=== PATIENT | male | born 1955 | race Caucasian/White ===

== ENCOUNTER → 2017-07-06 | Outpatient (CLI) | payer OTHER | END | disposition home or self-care (01) | LOC: LABWHC1 09:06 | PROVIDERS: ATTEND Internal Medicine Endocrinology, Diabetes & Metabolism | DX: E11.65 Type 2 diabetes mellitus with hyperglycemia (principal) | CPT/HCPCS: 36415; 82947; 84681 ==

== ENCOUNTER → 2017-07-21 | Outpatient (CLI) | payer OTHER ==
[2017-07-21 08:21] LABS: Blood Urea Nitrogen 24 mg/dL (9-20)
--- NOTE | 2017-07-21 09:40 | CT ---
EXAMINATION TYPE: CT chest w con DATE OF EXAM: 07/21/2017 COMPARISON: NONE HISTORY: Pneumonia, multiple lung nodules CT DLP: 1278.0 mGycm. Automated Exposure Control for Dose Reduction was Utilized. TECHNIQUE: CT scan of the thorax is performed following with IV Contrast, patient injected with 100 mL of Isovue 300. FINDINGS: LUNGS: Again there is a left anterior chest wall defect with herniation of the left upper lobe, simil ar to the prior. There is near complete resolution of the previously seen multifocal reticular opacit y within the left upper lobe. A trace left pleural effusion, anterior pleural thickening along the le ft upper lobe on series 3 image 22 measuring 2.1 cm, and prominent subpleural fat are now seen. There is significant improvement of the previously noted left pleural effusion and scattered atelectasis. There remains a focal opacity that is wedge-shaped with air bronchograms in the lingula. This demonst rates enhancement greater than the paraspinal musculature and is therefore favored to represent atele ctasis. Multiple well-corticated healed left-sided rib fractures are noted at ribs 2, 3, 4 and 5 on t he left. No focal consolidation is seen within the right lung, however there are scattered sub-4 mm pulmonary nodules marked on the examination most prominent within the right middle lobe on series 4 image 34 an d images 23 and 24. These are similar to the prior. MEDIASTINUM: There are no greater than 1 cm hilar or mediastinal lymph nodes. No pericardial effusi on is seen. Heart is upper limits of normal in size. OTHER: On series 3 image 61 there is a 1.7 cm low-density hepatic lesion measuring attenuation of flu id favored to represent a hepatic cyst. Mild multilevel degenerative changes of the thoracic spine ar e noted. IMPRESSION: 1. Near complete resolution the previously seen multifocal left-sided opacities and left pleural effu nesha. The pleural effusion is now trace and there is residual wedge-shaped lingular atelectasis withi n the left lung. Left chest wall defect and left upper lobe pulmonary herniation is unchanged. 2. Multiple sub-4 mm pulmonary nodules within the right lung are unchanged and follow-up CT is recomm ended in 12 months to ensure stability.
== END | disposition home or self-care (01) ==
LOC: RADCTMAIN 07:47
PROVIDERS: ATTEND Internal Medicine
DX: J98.11 Atelectasis (principal); J98.4 Other disorders of lung; R91.8 Other nonspecific abnormal finding of lung field
CPT/HCPCS: 82565; 84520; 71260; 36415; Q9967

== ENCOUNTER → 2018-09-30 | Outpatient (CLI) | payer OTHER ==
[2018-09-30 13:47] LABS: African American GFR (CKD) >90 (>60 ml/min/1.73 sqM); Blood Urea Nitrogen 26 mg/dL (9-20)
--- NOTE | 2018-09-30 16:33 | CT ---
EXAMINATION TYPE: CT angio chest DATE OF EXAM: 09/30/2018 COMPARISON: 07/21/2017 HISTORY: 63-year-old male Thoracic aneurysm TECHNIQUE: Contiguous axial scanning of the chest performed with IV Contrast, patient injected with 1 00 mL of Isovue 370. Coronal/sagittal MIP reconstructions performed. 3-D reconstructions generated on a dedicated independent workstation. CT DLP: 1068.3 mGycm Automated exposure control for dose reduction was used. FINDINGS: Heart normal size without pericardial effusion. Scattered mild coronary vessel calcifications are pre sent. Aortic root measures borderline ectatic at 3.5 cm, unchanged. Ascending aorta ectatic and 3.8 cm, unchanged. Conventional arch vessel branching anatomy. Descending thoracic aorta normal caliber. Mildly enlarged caliber to the main right and the pulmonary arteries measuring up to 3.0 cm suggestin g underlying pulmonary arterial hypertension. No thoracic lymphadenopathy. Redemonstrated multiple healed segmental left-sided rib fracture deformities. There is a posttraumatic lung herniation anteriorly at the second intercostal space with herniated sorin ng measuring 12.4 x 5.7 cm versus 12.4 x 4.5 cm, previously. Underlying pleural-parenchymal scarring. Subpleural opacity in the inferior lingula has decreased in the interval. Residual opacity here susp ected to represent rounded atelectasis. Additional chronic subpleural thickening posterior left base. Stable 5 mm and smaller scattered pulmonary nodules. Mild centrilobular emphysema. Larger 9 mm medial right apical pulmonary nodule is also stable. Visualized upper abdomen shows stable mild thickening of the left adrenal gland. Bones: Again, multiple segmental healed left-sided rib fracture deformities. Moderate endplate spondy losis throughout. IMPRESSION: 1. ECTATIC ASCENDING AORTA (ROOT 3.5 CM AND ASCENDING 3.8 CM). 2. COPD WITH MILD EMPHYSEMA AND PULMONARY ARTERIAL HYPERTENSION. 3. MULTIPLE HEALED SEGMENTAL LEFT-SIDED RIB FRACTURE DEFORMITIES WITH UNDERLYING PLEURAL PARENCHYMAL SCARRING AND LEFT BASILAR ROUNDED ATELECTASIS. 4. THERE IS ALSO REDEMONSTRATED POSTTRAUMATIC LUNG HERNIATION EXTENDING ANTERIORLY IN THE SECOND INTE RCOSTAL SPACE. THE LUNG HERNIATION IS MINIMALLY LARGER AT 12.4 X 5.7 CM (VERSUS 12.4 X 4.5 CM, PREVIO USLY). CONSIDER THORACIC SURGERY REFERRAL TO ASSESS FOR ANY POTENTIAL FURTHER MANAGEMENT. 5. NUMEROUS 9 MM SMALLER PULMONARY NODULES ARE UNCHANGED FOR OVER A YEAR SUGGESTING A BENIGN ETIOLOGY .
== END | disposition home or self-care (01) ==
LOC: RADCTMAIN 13:16
PROVIDERS: ATTEND Internal Medicine Interventional Cardiology
DX: I77.810 Thoracic aortic ectasia (principal); J43.9 Emphysema, unspecified; I27.21 Secondary pulmonary arterial hypertension; J98.4 Other disorders of lung; J98.11 Atelectasis
CPT/HCPCS: 82565; 84520; 71275; 36415; Q9967

== ENCOUNTER → 2020-01-11 | Day surgery (SDC) | payer MEDICARE ==
[2020-01-10 10:42] VITALS: BMI 39.9
[~2020-01-11] MED LIST: LACTATED RINGERS 1,000 ML IV SCH; LIDOCAINE 1% (10MG/ML) FOR IV START INTRADERMA PRN; PROPOFOL 10 MG/ML 20 ML VIAL IV ONE
--- NOTE | 2020-01-11 06:24 | P.GSHP ---
History of Present Illness H&P Date: 01/11/20 CHIEF COMPLAINT: Colon screen HISTORY OF PRESENT ILLNESS: The patient is a 64-year-old male who presents for colon screen. Lower endoscopy was offered for further evaluation and management. PAST MEDICAL HISTORY: Please see list. PAST SURGICAL HISTORY: Please see list. MEDICATIONS: Please see list. ALLERGIES: Please see list. SOCIAL HISTORY: No illicit drug use FAMILY HISTORY: No reports of Crohn disease or ulcerative colitis. REVIEW OF ORGAN SYSTEMS: CONSTITUTIONAL: No reports of fevers or chills. PHYSICAL EXAM: VITAL SIGNS: Stable GENERAL: Well-developed pleasant in no acute distress. HEENT: No scleral icterus. Extraocular movements grossly intact. Moist buccal mucosa. NECK: Supple without lymphadenopathy. CHEST: Unlabored respirations. Equal bilateral excursions. CARDIOVASCULAR: Regular rate and rhythm. Distal 2+ pulses. ABDOMEN: Soft, nontender, nondistended. MUSCULOSKELETAL: No clubbing, cyanosis, or edema. ASSESSMENT: 1. Colon screen. PLAN: 1. 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 History of Any Multi-Drug Resistant Organisms: None Reported Past Surgical History: Appendectomy, Hernia Repair Additional Past Surgical History / Comment(s): COLONOSCOPY Past Anesthesia/Blood Transfusion Reactions: No Reported Reaction Smoking Status: Current every day smoker - Past Family History Sister(s) Family Medical History: Cancer Medications and Allergies Home Medications Medication Instructions Recorded Confirmed Type Aspirin [Adult Low Dose Aspirin EC] 81 mg PO DAILY 03/07/17 01/10/20 History Pioglitazone HCl 30 mg PO DAILY 03/07/17 01/10/20 History atenoloL [Tenormin] 25 mg PO DAILY 03/07/17 01/10/20 History gemfibroziL [Lopid] 600 mg PO BID 03/07/17 01/10/20 History metFORMIN HCL 1,000 mg PO BID 03/07/17 01/10/20 History Acetaminophen Tab [Tylenol] 650 mg PO Q6HR PRN tab 03/11/17 01/10/20 Rx Cholecalciferol [Vitamin D3 (25 1,000 unit PO DAILY 01/10/20 01/10/20 History Mcg = 1000 Iu)] Empagliflozin [Jardiance] 25 mg PO DAILY 01/10/20 01/10/20 History Ferrous Sulfate [Feosol] 325 mg PO DAILY 01/10/20 01/10/20 History Glimepiride [Amaryl] 4 mg PO DAILY 01/10/20 01/10/20 History Ipratropium-Albuterol Nebulize 3 ml INHALATION RT-QID PRN 01/10/20 01/10/20 History [Duoneb 0.5 mg-3 mg/3 ml Soln] Lisinopril [Prinivil] 10 mg PO DAILY 01/10/20 01/10/20 History Psyllium Husk 100% [Metamucil 6 gm PO DAILY PRN 01/10/20 01/10/20 History Packet] Tiotropium 18 Mcg/Puff [Spiriva] 1 puff INHALATION DAILY PRN 01/10/20 01/10/20 History Allergies Allergy/AdvReac Type Severity Reaction Status Date / Time No Known Allergies Allergy Verified 01/10/20 09:59
[2020-01-11 08:30] VITALS: RESP 16; TEMP 97.5
[2020-01-11 08:32] LABS: Glucose,Whole Blood 147 mg/dL (75-99)
--- NOTE | 2020-01-11 09:28 | P.PCN ---
Date of Procedure: 01/11/20 Description of Procedure: PREOPERATIVE DIAGNOSIS: Personal history of colon polyps POSTOPERATIVE DIAGNOSIS: Personal history of colon polyps Sigmoid colon polyps Internal hemorrhoids, grade 3 External hemorrhoids, grade 4 OPERATION: Colonoscopy to the ileocecal valve and appendiceal orifice, cecum Colonoscopy with cold forceps biopsies SURGEON: Rani Vazquez MD. ANESTHESIA: MAC. INDICATIONS: The patient is an 64-year-old male who presents personal history of colon polyps. Last colonoscopy 5 within years. Benefits and risks were described and informed consent was obtained. DESCRIPTION OF PROCEDURE: The patient had undergone Gatorade, MiraLAX, Dulcolax prep. He had been brought into the operating room and laid in the left lateral decubitus position. After adequate intravenous sedation, the rectum was examined with 2% lidocaine jelly. The prostate fossa was unremarkable. External hemorrhoids were encountered. The rectal tone was within normal limits. No lesions were palpated in the rectal vault. An Olympus colonoscope was advanced until the cecum, ileocecal valve and appendiceal orifice were clearly viewed. The prep was fair. No sigmoid diverticulosis was encountered. Multiple colonic polyps were found and snare polypectomy. No evidence of focal colitis was found. Retroflexion of the scope demonstrated grade 3 internal hemorrhoids without active bleeding or inflammation. The colon was desufflated. The patient had tolerated the procedure well. Withdrawal time was over 6 minutes. FINDINGS: Aronchick preparation quality scale 2 (1-5) Internal hemorrhoids, grade 3 External hemorrhoids, grade 4. No arteriovenous malformations. No sigmoid diverticulosis Removal of 2 polyps: - Cold forceps biopsy at 20 cm from the anal verge x 2, 3 to 4 mm polyps No focal colitis. RECOMMENDATIONS: Repeat colonoscopy 3 years, 2022 Plan - Discharge Summary Discharge Rx Participant: No New Discharge Prescriptions: Continue metFORMIN HCL 1,000 mg PO BID Pioglitazone HCl 30 mg PO DAILY gemfibroziL [Lopid] 600 mg PO BID atenoloL [Tenormin] 25 mg PO DAILY Aspirin [Adult Low Dose Aspirin EC] 81 mg PO DAILY Acetaminophen Tab [Tylenol] 650 mg PO Q6HR PRN tab PRN Reason: Mild Pain Or Fever > 100.5 Psyllium Husk 100% [Metamucil Packet] 6 gm PO DAILY PRN PRN Reason: CONSTIPATION Ipratropium-Albuterol Nebulize [Duoneb 0.5 mg-3 mg/3 ml Soln] 3 ml INHALATION RT-QID PRN PRN Reason: Shortness Of Breath Or Wheezing Ferrous Sulfate [Iron (65 MG Elemental)] 325 mg PO DAILY Cholecalciferol [Vitamin D3 (25 Mcg = 1000 Iu)] 1,000 unit PO DAILY Lisinopril [Prinivil] 10 mg PO DAILY Tiotropium 18 Mcg/Puff [Spiriva] 1 puff INHALATION DAILY PRN PRN Reason: Shortness Of Breath Empagliflozin [Jardiance] 25 mg PO DAILY Glimepiride [Amaryl] 4 mg PO DAILY Discharge Medication List Aspirin [Adult Low Dose Aspirin EC] 81 mg PO DAILY 03/07/17 [History] Pioglitazone HCl 30 mg PO DAILY 03/07/17 [History] atenoloL [Tenormin] 25 mg PO DAILY 03/07/17 [History] gemfibroziL [Lopid] 600 mg PO BID 03/07/17 [History] metFORMIN HCL 1,000 mg PO BID 03/07/17 [History] Acetaminophen Tab [Tylenol] 650 mg PO Q6HR PRN tab 03/11/17 [Rx] Cholecalciferol [Vitamin D3 (25 Mcg = 1000 Iu)] 1,000 unit PO DAILY 01/10/20 [History] Empagliflozin [Jardiance] 25 mg PO DAILY 01/10/20 [History] Ferrous Sulfate [Iron (65 MG Elemental)] 325 mg PO DAILY 01/10/20 [History] Glimepiride [Amaryl] 4 mg PO DAILY 01/10/20 [History] Ipratropium-Albuterol Nebulize [Duoneb 0.5 mg-3 mg/3 ml Soln] 3 ml INHALATION RT-QID PRN 01/10/20 [History] Lisinopril [Prinivil] 10 mg PO DAILY 01/10/20 [History] Psyllium Husk 100% [Metamucil Packet] 6 gm PO DAILY PRN 01/10/20 [History] Tiotropium 18 Mcg/Puff [Spiriva] 1 puff INHALATION DAILY PRN 01/10/20 [History] Follow up Appointment(s)/Referral(s): Rani Vazquez MD [STAFF PHYSICIAN] - As Needed Patient Instructions/Handouts: Colorectal Polyps (IP) Activity/Diet/Wound Care/Special Instructions: Repeat colonoscopy 3 years, 2022 Discharge Disposition: HOME SELF-CARE
[2020-01-11 10:05] VITALS: BP 106/47; PULSE 67
== END | disposition home or self-care (01) ==
LOC: ORWHC2ENDO 08:08
PROVIDERS: ATTEND Surgery Plastic and Reconstructive Surgery
DX: Z12.11 Encounter for screening for malignant neoplasm of colon (principal); D12.6 Benign neoplasm of colon, unspecified; K64.2 Third degree hemorrhoids; K64.4 Residual hemorrhoidal skin tags; I10 Essential (primary) hypertension; E78.5 Hyperlipidemia, unspecified; G47.33 Obstructive sleep apnea (adult) (pediatric); J44.9 Chronic obstructive pulmonary disease, unspecified; F17.200 Nicotine dependence, unspecified, uncomplicated; E11.9 Type 2 diabetes mellitus without complications; Z86.010 Personal history of colon polyps; Z79.84 Long term (current) use of oral hypoglycemic drugs; Z79.82 Long term (current) use of aspirin; Z79.899 Other long term (current) drug therapy; Z99.89 Dependence on other enabling machines and devices; Z98.890 Other specified postprocedural states; Z87.01 Personal history of pneumonia (recurrent)
CPT/HCPCS: 88305; 45380; J2704

== ENCOUNTER → 2020-04-26 | Outpatient (CLI) | payer MEDICARE ==
--- NOTE | 2020-04-26 11:58 | CT ---
EXAMINATION TYPE: CT angio chest DATE OF EXAM: 04/26/2020 COMPARISON: 09/30/2018 HISTORY: 65-year-old male I71.2, Thoracic aortic aneurysm w/o rupture TECHNIQUE: Contiguous axial scanning of the chest performed with IV Contrast, patient injected with 1 00 mL of Isovue 370. Coronal and sagittal MIP reconstructions performed. 3-D images generated on a de dicated independent workstation. CT DLP: 1122.9 mGycm Automated exposure control for dose reduction was used. FINDINGS: Heart size without pericardial effusion. Mild coronary calcifications are present. Aortic root currently measured at 4.0 cm versus 3.8 cm, previously. There is motion at this level niteo iting accurate assessment. Ascending aorta is ectatic at 3.8 cm, unchanged. Minimal atherosclerotic arch calcifications with conventional arch vessel branching anatomy. Large caliber to the main right and left pulmonary arteries measuring up to 3.2 cm suggesting underly ing pulmonary arterial hypertension. Bilateral hilar lymph nodes appear slightly larger now measuring up to 2.2 x 1.3 cm on the left and 2 .8 x 1.3 cm on the right. No mediastinal or axillary lymphadenopathy. Diffuse increased interstitial density is largely unchanged. Patchy interstitial opacity has increase d in the bilateral lower lobes with possible developing consolidation lateral right lower lobe, axial image 74. Scattered pulmonary nodules measuring up to 7 mm appear largely unchanged. Redemonstrated are multiple healed segmental fracture deformities of the left-sided ribs with some se condary thoracic deformity and extensive pleural-parenchymal scarring as well as an area of chronic c onsolidation in the inferior lingula, probable scarring. This area shows increasing fullness as eugenia red to prior exam measuring 7.3 cm AP versus 5.8 cm, previously. Anterior lung herniation across the left second intercostal space is redemonstrated measuring approxi mately 10 cm wide and 4.3 cm AP, not significantly changed. Nodular thickening left adrenal gland measures 1.8 cm, not significantly changed. Bones: Multiple left-sided segmental rib fracture deformities as mentioned above. Moderate endplate s pondylosis lower thoracic spine. IMPRESSION: 1. SOME OF THE UNDERLYING INTERSTITIAL CHANGES APPEAR CHRONIC. HOWEVER, THERE ARE WORSENING INTERSTIT IAL INFILTRATES AND AREAS OF PATCHY [place]OUNDGLASS AND EARLY CONSOLIDATION ESPECIALLY IN THE PERIPHERY O F THE MID AND LOWER LUNGS. CORRELATE FOR ANY RESPIRATORY SIGNS/SYMPTOMS. ATYPICAL PNEUMONIA INCLUDING COVID PNEUMONIA AND INTERSTITIAL PNEUMONITIS ARE SOME DIFFERENTIAL CONSIDERATIONS. CONSIDER REFERRAL TO PULMONARY MEDICINE FOR FURTHER EVALUATION. 2. AORTIC ROOT MILDLY ANEURYSMAL, MEASURED AT 4.0 CM VERSUS 3.8 CM, PREVIOUSLY. STABLE ECTASIA OF THE ASCENDING AORTA AT 3.8 CM. PULMONARY ARTERIAL HYPERTENSION. 3. SCATTERED PULMONARY NODULES ARE STABLE. HOWEVER, FOCAL INFERIOR LINGULAR CONSOLIDATION IS INCREASI NG NOW MEASURING 7.3 CM AP VERSUS 5.7 CM, PREVIOUSLY. THREE-MONTH FOLLOW-UP IS RECOMMENDED TO REASSES S. IF PROGRESSIVE INCREASE IN SIZE, CONSIDER PET CT OR BIOPSY. 4. INCREASING BILATERAL HILAR LYMPHADENOPATHY. CORRELATE FOR ANY KNOWN UNDERLYING DIAGNOSIS SUCH S ARCOIDOSIS. CORRELATE TO EXCLUDE ATYPICAL FUNGAL OR MYCOBACTERIAL INFECTIONS. THE POSSIBILITY OF META STATIC DISEASE IS DIFFICULT TO EXCLUDE AT THIS TIME BUT CONSIDERED LESS LIKELY. THIS CAN ALSO BE FOLL OWED BY PULMONARY MEDICINE. 5. MULTIPLE SEGMENTAL HEALED LEFT RIB FRACTURE DEFORMITIES WITH REDEMONSTRATED ANTERIOR LUNG HERNIATI ON ACROSS THE SECOND INTERCOSTAL SPACE. .
== END | disposition home or self-care (01) ==
LOC: RADCTMAIN 10:05
PROVIDERS: ATTEND Internal Medicine Interventional Cardiology
DX: R91.8 Other nonspecific abnormal finding of lung field (principal); J84.9 Interstitial pulmonary disease, unspecified; J12.89 Other viral pneumonia; U07.1 COVID-19; J84.89 Other specified interstitial pulmonary diseases; I77.810 Thoracic aortic ectasia; I27.21 Secondary pulmonary arterial hypertension; R59.1 Generalized enlarged lymph nodes
CPT/HCPCS: 82565; 84520; 71275; 36415; Q9967

== ENCOUNTER → 2021-10-11 | Outpatient (CLI) | payer MEDICARE ==
--- NOTE | 2021-10-11 16:11 | CT ---
EXAMINATION TYPE: CT angio chest DATE OF EXAM: 10/11/2021 COMPARISON: 04/26/2020 HISTORY: 66-year-old male I71.2, thoracic aortic aneurysm TECHNIQUE: Contiguous axial scanning of the chest performed without and with IV Contrast, patient inj ected with 70 mL of Isovue 370. Coronal/sagittal MIP reconstructions performed. 3-D reconstructions g enerated on a dedicated independent workstation. CT DLP: 1804.5 mGycm Automated exposure control for dose reduction was used. FINDINGS: The heart is upper limits of normal in size without pericardial effusion. Scattered three-vessel anna nary artery calcifications are present. Aortic root borderline ectatic at 3.5 cm. Previously measured at 4.0 cm. Likely overestimated due to the degree of cardiac motion. Ascending aorta ectatic and 3.7 cm previously measured at 3.8 cm, not significantly changed. Mild atherosclerotic arch calcifications with conventional branching anatomy. Descending thoracic aor ta normal caliber. Mildly enlarged caliber to the main right and left pulmonary arteries measuring up to 3.3 cm suggesti ng underlying pulmonary hypertension. Redemonstrated bilateral hilar lymph nodes measuring up to 2.0 cm on the right and 1.7 cm on the left . These are similar to slightly smaller compared to prior exam suggesting a reactive, postinflammator y etiology. No progressively enlarging lymph nodes are seen. There is a focal anterior lung herniation from the upper left hemithorax involving the second interco stal space. Lung projects approximately 4.6 cm anterior to the expected thoracic margin versus 3.8 cm , previously. Asymmetrically lifts up onto the left pectoralis major. Multiple old healed left-sided rib fracture deformities. Focal subpleural opacification anterior left midlung and inferior lingula appears similar. Additional scattered areas of scarring are also redemo nstrated. A few scattered 5 mm and smaller pulmonary nodules appear unchanged. Largest measuring 1.1 cm medial right apex also unchanged. The previous patchy opacity posterolateral right mid lung has resolved. No pleural effusion. Visualized upper abdomen shows partially visualized cyst measuring at least 6.0 cm lateral right kidn ey and a left adrenal nodule measuring 1.9 cm, unchanged. Bones: Mild multilevel degenerative disc disease. Accentuated kyphosis at the thoracolumbar junction. IMPRESSION: 1. AORTIC ROOT IS BORDERLINE ECTATIC AT 3.5 CM. IT MAY HAVE BEEN OVERESTIMATED ON THE PRIOR EXAM DUE TO PROMINENT CARDIAC MOTION. ASCENDING AORTA SIMILARLY ECTATIC AT 3.7 CM. 2. CORRELATE FOR UNDERLYING PULMONARY ARTERIAL HYPERTENSION. 3. BILATERAL HILAR LYMPHADENOPATHY SIMILAR TO SLIGHTLY IMPROVED, MEASURING UP TO 2.0 CM, LIKELY REACT KINZA/POST INFLAMMATORY. 4. OLD TRAUMA TO THE LEFT HEMITHORAX WITH FOCAL ANTERIOR LUNG HERNIATION ACROSS THE SECOND INTERCOSTA L SPACE. HERNIATION IS SLIGHTLY LARGER MEASURING 4.6 CM AP VERSUS 3.8 CM, PREVIOUSLY, AND ASYMMETRICA LLY LIFTS UP ON THE LEFT PECTORALIS MAJOR. 5. CHRONIC AREAS OF CONSOLIDATION ON THE LEFT ARE UNCHANGED. ADDITIONALLY, A NUMBER OF PULMONARY NODU LES MEASURING UP TO 1.1 CM ARE ALSO UNCHANGED. RECOMMEND ONGOING ANNUAL SURVEILLANCE.
== END | disposition home or self-care (01) ==
LOC: RADCTMAIN 13:57
PROVIDERS: ATTEND Internal Medicine Interventional Cardiology
DX: I71.2 Thoracic aortic aneurysm, without rupture (principal); R91.8 Other nonspecific abnormal finding of lung field
CPT/HCPCS: 82565; 84520; 71275; 36415; Q9967

== ENCOUNTER → 2022-07-28 | Outpatient (CLI) | payer MEDICARE ==
[2022-07-28 15:26] LABS: ALT 19 U/L (10-49); AST 15 U/L (14-35); Chol/HDL Ratio 3.74 Ratio; LDL Cholesterol,Calculated 63.6 mg/dL (0.0-131.0)
== END | disposition home or self-care (01) ==
LOC: LABWHC1 07:53
PROVIDERS: ATTEND Internal Medicine Interventional Cardiology
DX: E78.2 Mixed hyperlipidemia (principal)
CPT/HCPCS: 36415; 80061; 84450; 84460

== ENCOUNTER 2022-12-19 15:50 | Emergency (ER) | payer MEDICARE ==
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
[2022-12-19 16:01] LABS: Glucose,Whole Blood 147 mg/dL (70-110)
[2022-12-19 16:08] VITALS: BP 106/70; PULSE 72; RESP 18; TEMP 98.4
[2022-12-19 16:15] LABS: Basophils % (A) 0 %; Eosinophils # (A) 0.2 k/uL (0-0.7); Eosinophils % (A) 3 %; HCT 54.3 % (39.0-53.0); HGB 18.1 gm/dL (13.0-17.5); Lymphocytes # (A) 1.7 k/uL (1.0-4.8); Lymphocytes % (A) 28 %; MCH 30.8 pg (25.0-35.0); MCHC 33.3 g/dL (31.0-37.0); MCV 92.4 fL (80.0-100.0); Monocytes # (A) 0.5 k/uL (0-1.0); Monocytes % (A) 8 %; Neutrophils # (A) 3.4 k/uL (1.3-7.7); Neutrophils % (A) 57 %; Platelet Count 196 k/uL (150-450); RBC 5.88 m/uL (4.30-5.90); RDW 14.9 % (11.5-15.5); WBC 5.9 k/uL (3.8-10.6)
[2022-12-19 16:27] LABS: ALT 22 U/L (4-49); AST 29 U/L (17-59); African American GFR (CKD) 81 (>60 ml/min/1.73 sqM); Albumin 4.4 g/dL (3.5-5.0); Alcohol <10 mg/dL; Alkaline Phosphatase 67 U/L (38-126); Anion Gap 10 mmol/L; Blood Urea Nitrogen 35 mg/dL (9-20); Calcium 9.7 mg/dL (8.4-10.2); Carbon Dioxide 28 mmol/L (22-30); Chloride 100 mmol/L (98-107); Glucose 146 mg/dL (74-99); Non-African American GFR(CKD) 70 (>60 ml/min/1.73 sqM); Potassium 4.2 mmol/L (3.5-5.1); Sodium 138 mmol/L (137-145); Total Bilirubin 0.6 mg/dL (0.2-1.3); Total Protein 7.6 g/dL (6.3-8.2)
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
[2022-12-19 16:35] LABS: Partial Thromboplastin Time 24.8 sec (22.0-30.0); Prothrombin Time 10.5 sec (9.0-12.0)
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
== END 2022-12-19 18:20 | disposition home or self-care (01) ==
LOC: EC 15:50
DX: S16.1XXA Strain of muscle, fascia and tendon at neck level, initial encounter (principal); J44.9 Chronic obstructive pulmonary disease, unspecified; E11.9 Type 2 diabetes mellitus without complications; E78.5 Hyperlipidemia, unspecified; I10 Essential (primary) hypertension; F17.210 Nicotine dependence, cigarettes, uncomplicated; Z79.82 Long term (current) use of aspirin; Z79.01 Long term (current) use of anticoagulants; Z79.899 Other long term (current) drug therapy; Z79.84 Long term (current) use of oral hypoglycemic drugs; V49.50XA Passenger injured in collision with unspecified motor vehicles in traffic accident, initial encounter
CPT/HCPCS: 36415; 86900; 86901; 80053; 84484; 85025; 85610; 85730; 86850; 72170; 71045; 72125; 70450; 99285; G0480; 80320; 93005

== ENCOUNTER → 2023-02-03 | Outpatient (CLI) | payer MEDICARE ==
--- NOTE | 2023-02-03 12:09 | CTL ---
EXAMINATION TYPE: CT Low Dose Lung DATE OF EXAM ORDERED: 02/03/2023 HISTORY: . Lung cancer screening CT DLP: [address] CTDI: 4.3 mGy Automated exposure control for dose reduction was used. SCREENING VISIT: COMPARISON: 04/26/2020 TECHNIQUE: Low dose computed tomography scan was performed through the chest at 1 mm thick sections a nd reconstructed images in multiple planes at 1 mm and [address] DIAGNOSTIC QUALITY: Satisfactory FINDINGS: Heart size normal.. Mild coronary calcifications are present. Aortic root currently measured at 4.1 c m versus 4.0cm, previously. There is motion at this level limiting accurate assessment. Ascending aorta is ectatic at 3.8 cm, unchanged. Minimal atherosclerotic arch calcifications with con ventional arch vessel branching anatomy. Large caliber to the main right and left pulmonary arteries measuring up to 3.2 cm suggesting underlying pulmonary arterial hypertension. Bilateral hilar promine nce limited by noncontrast technique. Lymph nodes previously mentioned are stable now measuring up to 2.2 x 1.3 cm on the left and 2.8 x 1.3 cm on the right. No mediastinal or axillary lymphadenopathy. Diffuse increased interstitial density is largely unchanged. Patchy interstitial opacity has increase d in the bilateral lower lobes with stable focal consolidation left lower lobe. Additionally anterior area of nodular consolidation involving the left upper lobe is stable Scattered pulmonary nodules measuring up to 7 mm appear largely unchanged. Stable Redemonstrated are multiple healed segmental fracture deformities of the left- sided ribs with some s econdary thoracic deformity. There is extensive pleural- parenchymal scarring as well as an area of chronic consolidation in the i nferior lingula, probable scarring. This area is stable. Anterior lung herniation across the left sec ond intercostal space is redemonstrated measuring approximately 10 cm wide and 4.3 cm AP, not signifi cantly changed. Underlying emphysematous changes are noted and there is mild interlobular septal thic kening along the periphery of the lungs compatible with mild pulmonary fibrosis. Basilar areas of sub segmental consolidation compatible with atelectasis. Nodular thickening left adrenal gland measures 1.8 cm, not significantly changed. Small hiatal hernia . Bones: Multiple left-sided segmental rib fracture deformities as mentioned above. Moderate endplate s pondylosis lower thoracic spine. IMPRESSION: 1. Stable bone thoracic cage deformity on the left with lung herniation unchanged from prior exam. 2. Stable multiple bilateral pulmonary nodules the largest measuring 7 mm. 3. Stable aortic root and mild aneurysmal dilation measuring 4.1 cm. 4. Stable bilateral hilar lymphadenopathy. 5. Area of consolidation air bronchograms and lingular segment left upper lobe is similar to the prio r exam could reflect chronic underlying atelectasis. CT LUNG RAD AND CT CHEST RECOMMENDATION: Lung-Rad 3 Probably Benign: 6 month follow-up LDCT.
== END | disposition home or self-care (01) ==
LOC: RADCTMAIN 09:16
PROVIDERS: ATTEND Internal Medicine Critical Care Medicine
DX: Z12.2 Encounter for screening for malignant neoplasm of respiratory organs (principal); F17.210 Nicotine dependence, cigarettes, uncomplicated; J98.4 Other disorders of lung; R91.8 Other nonspecific abnormal finding of lung field; R59.0 Localized enlarged lymph nodes
CPT/HCPCS: 71271

== ENCOUNTER 2023-02-18 07:33 | Day surgery (SDC) | payer MEDICARE ==
[2023-02-16 10:39] VITALS: BMI 38.0
[~2023-02-18 07:33] MED LIST changes: -LIDOCAINE 1% (10MG/ML) FOR IV START INTRADERMA PRN; -PROPOFOL 10 MG/ML 20 ML VIAL IV ONE
[2023-02-18] MEDS ORDERED: LACTATED RINGERS 1,000 ML IV ONE (07:55)
[2023-02-18 08:21] LABS: Glucose,Whole Blood 131 mg/dL (70-110)
[2023-02-18] MEDS ORDERED: PROPOFOL 10 MG/ML 20 ML VIAL IV ONE (08:25)
[2023-02-18 08:27] VITALS: TEMP 98.1
--- NOTE | 2023-02-18 08:43 | P.GSHP ---
History of Present Illness H&P Date: 02/18/23 CHIEF COMPLAINT: Colon screen HISTORY OF PRESENT ILLNESS: The patient is a 67-year-old male who presents for colon screen. Lower endoscopy was offered for further evaluation and management. PAST MEDICAL HISTORY: Please see list. PAST SURGICAL HISTORY: Please see list. MEDICATIONS: Please see list. ALLERGIES: Please see list. SOCIAL HISTORY: No illicit drug use FAMILY HISTORY: No reports of Crohn disease or ulcerative colitis. REVIEW OF ORGAN SYSTEMS: CONSTITUTIONAL: No reports of fevers or chills. PHYSICAL EXAM: VITAL SIGNS: Stable GENERAL: Well-developed pleasant in no acute distress. HEENT: No scleral icterus. Extraocular movements grossly intact. Moist buccal mucosa. NECK: Supple without lymphadenopathy. CHEST: Unlabored respirations. Equal bilateral excursions. CARDIOVASCULAR: Regular rate and rhythm. Distal 2+ pulses. ABDOMEN: Soft, nontender, nondistended. MUSCULOSKELETAL: No clubbing, cyanosis, or edema. ASSESSMENT: 1. Colon screen. PLAN: 1. Recommend proceeding with a lower endoscopy Past Medical History Past Medical History: Coronary Artery Disease (CAD), COPD, Diabetes Mellitus, Hyperlipidemia, Hypertension, Pneumonia, Sleep Apnea/CPAP/BIPAP Additional Past Medical History / Comment(s): C PAP MACHINE,Covid infection Mar 2020 History of Any Multi-Drug Resistant Organisms: None Reported Past Surgical History: Appendectomy, Heart Catheterization With Stent, Hernia Repair Additional Past Surgical History / Comment(s): COLONOSCOPY,umbilical hernia Past Anesthesia/Blood Transfusion Reactions: No Reported Reaction Additional Past Anesthesia/Blood Transfusion Reaction / Comment(s): it takes awhile to wake up with anesthesia Date of Last Stent Placement:: 05-22-22 Smoking Status: Current every day smoker - Past Family History Sister(s) Family Medical History: Cancer Additional Family Medical History / Comment(s): 2 sisters-skin,breast Medications and Allergies Home Medications Medication Instructions Recorded Confirmed Type Aspirin [Adult Low Dose Aspirin EC] 81 mg PO DAILY 03/07/17 02/18/23 History Pioglitazone HCl 30 mg PO DAILY 03/07/17 02/18/23 History atenoloL [Tenormin] 25 mg PO QAM 03/07/17 02/18/23 History metFORMIN HCL [Glucophage] 1,000 mg PO BID 03/07/17 02/18/23 History Empagliflozin [Jardiance] 25 mg PO DAILY 01/10/20 02/18/23 History Glimepiride [Amaryl] 4 mg PO DAILY 01/10/20 02/18/23 History lisinopriL [Prinivil] 10 mg PO QAM 01/10/20 02/18/23 History Atorvastatin [Lipitor] 80 mg PO HS 05/19/22 02/18/23 History Fluticasone/Umeclidin/Vilanter 1 puff INHALATION HS 05/19/22 02/18/23 History [Trelegy Ellipta 200-62.5-25] Multivitamins, Thera [Multivitamin 1 tab PO DAILY 05/19/22 02/18/23 History (formulary)] Clopidogrel [Plavix] 75 mg PO DAILY #90 tablet 05/22/22 02/18/23 Rx Nitroglycerin Sl Tabs [Nitrostat] 0.4 mg SUBLINGUAL Q5M PRN #25 tab 05/22/22 02/18/23 Rx Albuterol Inhaler [Ventolin Hfa 1 - 2 puff INHALATION Q6H PRN 02/16/23 02/18/23 History Inhaler] Ezetimibe [Zetia] 10 mg PO BID 02/16/23 02/18/23 History Fluticasone Nasal Jermyn [Flonase 2 spray EA NOSTRIL DAILY PRN 02/16/23 02/18/23 History Nasal Jermyn] gemfibroziL [Lopid] 600 mg PO AC-BID 02/16/23 02/18/23 History Allergies Allergy/AdvReac Type Severity Reaction Status Date / Time No Known Allergies Allergy Verified 02/16/23 09:30 Surgical - Exam Vital Signs Temp Pulse BP Pulse Ox 98.1 F 67 117/59 93 L 02/18/23 08:05 02/18/23 08:05 02/18/23 08:05 02/18/23 08:05 Results - Labs Abnormal Lab Results - Last 24 Hours (Table) 02/18/23 Range/Units 08:14 POC Glucose (mg/dL) 131 H (70-110) mg/dL
--- NOTE | 2023-02-18 09:01 | P.PCN ---
Date of Procedure: 02/18/23 Description of Procedure: PREOPERATIVE DIAGNOSIS: Colonoscopy screening Chronic antiplatelet therapy Coronary artery disease History of colon polyp POSTOPERATIVE DIAGNOSIS: Tubular adenoma ascending colon Tubular adenoma transverse colon Internal hemorrhoids, grade 3 OPERATION: Colonoscopy to the ileocecal valve and appendiceal orifice, cecum Colonoscopy with hot snare polypectomy SURGEON: Rani Vazquez MD. ANESTHESIA: MAC. INDICATIONS: The patient is an 67-year-old male who presents for colonoscopy screening with polyps. Last colonoscopy 5 years. Benefits and risks were described and informed consent was obtained. DESCRIPTION OF PROCEDURE: The patient had undergone Golytely prep. The patient had been brought into the operating room and laid in the left lateral decubitus position. After adequate intravenous sedation, the rectum was examined with 2% lidocaine jelly. The pros gutierrez was unremarkable. External hemorrhoids were encountered. The rectal tone was within normal limits. No lesions were palpated in the rectal vault. An Olympus colonoscope was advanced until the cecum, ileocecal valve and appendiceal orifice were clearly viewed. The prep was poor to fair. No sigmoid diverticulosis was encountered. Colonic polyps were found and removed. No evidence of focal colitis was found. Retroflexion of the scope demonstrated grade 4 internal hemorrhoids without active bleeding or inflammation. The colon was desufflated. The patient had tolerated the procedure well. Withdrawal time was over 6 minutes. FINDINGS: Aronchick preparation quality scale 3+ (1-5) Internal hemorrhoids, grade 4 External hemorrhoids, grade 4. No arteriovenous malformations. No sigmoid diverticulosis Removal of 2 polyps: - Snare polypectomy ascending colon, 5 mm tubulovillous adenoma - Snare polypectomy transverse colon, 6 mm flat villous adenoma No focal colitis. RECOMMENDATIONS: Recommend three-day prep Repeat colonoscopy in 3 years, 2025 Plan - Discharge Summary Discharge Rx Participant: No New Discharge Prescriptions: Continue metFORMIN HCL [Glucophage] 1,000 mg PO BID Pioglitazone HCl 30 mg PO DAILY atenoloL [Tenormin] 25 mg PO QAM Aspirin [Adult Low Dose Aspirin EC] 81 mg PO DAILY lisinopriL [Prinivil] 10 mg PO QAM Empagliflozin [Jardiance] 25 mg PO DAILY Glimepiride [Amaryl] 4 mg PO DAILY Fluticasone/Umeclidin/Vilanter [Trelegy Ellipta 200-62.5-25] 1 puff INHALATION HS Nitroglycerin Sl Tabs [Nitrostat] 0.4 mg SUBLINGUAL Q5M PRN #25 tab PRN Reason: Chest Pain Albuterol Inhaler [Ventolin Hfa Inhaler] 1 - 2 puff INHALATION Q6H PRN PRN Reason: sob Ezetimibe [Zetia] 10 mg PO BID gemfibroziL [Lopid] 600 mg PO AC-BID Multivitamins, Thera [Multivitamin (formulary)] 1 tab PO DAILY Atorvastatin [Lipitor] 80 mg PO HS Clopidogrel [Plavix] 75 mg PO DAILY #90 tablet Fluticasone Nasal Oketo [Flonase Nasal Oketo] 2 spray EA NOSTRIL DAILY PRN PRN Reason: Congestion Discharge Medication List Aspirin [Adult Low Dose Aspirin EC] 81 mg PO DAILY 03/07/17 [History] Pioglitazone HCl 30 mg PO DAILY 03/07/17 [History] atenoloL [Tenormin] 25 mg PO QAM 03/07/17 [History] metFORMIN HCL [Glucophage] 1,000 mg PO BID 03/07/17 [History] Empagliflozin [Jardiance] 25 mg PO DAILY 01/10/20 [History] Glimepiride [Amaryl] 4 mg PO DAILY 01/10/20 [History] lisinopriL [Prinivil] 10 mg PO QAM 01/10/20 [History] Atorvastatin [Lipitor] 80 mg PO HS 05/19/22 [History] Fluticasone/Umeclidin/Vilanter [Trelegy Ellipta 200-62.5-25] 1 puff INHALATION HS 05/19/22 [History] Multivitamins, Thera [Multivitamin (formulary)] 1 tab PO DAILY 05/19/22 [History] Clopidogrel [Plavix] 75 mg PO DAILY #90 tablet 05/22/22 [Rx] Nitroglycerin Sl Tabs [Nitrostat] 0.4 mg SUBLINGUAL Q5M PRN #25 tab 05/22/22 [Rx] Albuterol Inhaler [Ventolin Hfa Inhaler] 1 - 2 puff INHALATION Q6H PRN 02/16/23 [History] Ezetimibe [Zetia] 10 mg PO BID 02/16/23 [History] Fluticasone Nasal Oketo [Flonase Nasal Oketo] 2 spray EA NOSTRIL DAILY PRN 02/16/23 [History] gemfibroziL [Lopid] 600 mg PO AC-BID 02/16/23 [History] Follow up Appointment(s)/Referral(s): Rani Vazquez MD [STAFF PHYSICIAN] - As Needed Patient Instructions/Handouts: Colorectal Polyps (GEN), Hemorrhoids (DC) Activity/Diet/Wound Care/Special Instructions: Colonoscopy 3 years, 2025. START PLAVIX Thursday02/20/23 Discharge Disposition: HOME SELF-CARE
[2023-02-18 09:19] VITALS: BP 96/60; PULSE 66; RESP 16
== END 2023-02-18 09:23 | disposition home or self-care (01) ==
LOC: ORWHC2ENDO 07:33
PROVIDERS: ATTEND Surgery Plastic and Reconstructive Surgery
DX: Z12.11 Encounter for screening for malignant neoplasm of colon (principal); D12.3 Benign neoplasm of transverse colon; K64.2 Third degree hemorrhoids; I25.10 Atherosclerotic heart disease of native coronary artery without angina pectoris; K64.3 Fourth degree hemorrhoids; K64.4 Residual hemorrhoidal skin tags; J44.9 Chronic obstructive pulmonary disease, unspecified; E11.9 Type 2 diabetes mellitus without complications; E78.5 Hyperlipidemia, unspecified; I10 Essential (primary) hypertension; J18.9 Pneumonia, unspecified organism; G47.33 Obstructive sleep apnea (adult) (pediatric); F17.210 Nicotine dependence, cigarettes, uncomplicated; Z79.51 Long term (current) use of inhaled steroids; Z79.899 Other long term (current) drug therapy; Z79.02 Long term (current) use of antithrombotics/antiplatelets; Z79.82 Long term (current) use of aspirin; Z79.84 Long term (current) use of oral hypoglycemic drugs; Z86.16 Personal history of COVID-19; Z98.890 Other specified postprocedural states; Z95.5 Presence of coronary angioplasty implant and graft; Z86.010 Personal history of colon polyps
CPT/HCPCS: 88305; 45385; J2704

== ENCOUNTER → 2024-02-05 | Outpatient (CLI) | payer MEDICARE ==
--- NOTE | 2024-02-05 13:24 | CTL ---
EXAMINATION TYPE: CT Low Dose Lung DATE OF EXAM ORDERED: 02/05/2024 COMPARISON: CT Low Dose Lung 02/03/2023, CTA chest 10/11/2021, 04/26/2020, 09/30/2018 CLINICAL INDICATION: Male, 68 years old with history of Z12.2 LUNG CANCER SCREENING; PHH, current smo ker 04/06-1ppd x45 years., Lung cancer screening, History of Smoking/tobacco use. TECHNIQUE: Low dose computed tomography scan was performed through the chest at 1 mm thick sections a nd reconstructed images in multiple planes at 1 mm and [address] DLP: 157.[address] CTDI: 4.30 mGy Automated exposure control for dose reduction was used. CT DIAGNOSTIC QUALITY: Satisfactory FINDINGS: Nodules: New medial left upper lung spiculated 2.0 cm pulmonary nodule (series 6, image 16). Marginal increase in size of right apical 1.2 cm solid pulmonary nodule (series 6, image 10). Previou sly 1.0 cm. Additional few scattered pulmonary nodules are stable in example including a right anterior upper lob e 6 millimeter pulmonary nodule (series 6, image 22), a right anterior midlung 6.1 mm pulmonary nodul e (series 6, image 28) and an adjacent 4 mm pulmonary nodule (series 6, image 29). LUNGS: COPD: Severity: Mild Fibrosis: Severity: Mild Lymph nodes: Development of subcarinal enlarged lymph node measuring 1.7 cm short axis (series 5, wenceslao ge 71). Other findings: Diffuse increased interstitial densities large and unchanged. Patchy interstitial opa cities are redemonstrated within the bilateral lobes. Additional anterior nodular consolidation invol ving the left upper lobe is stable. Extensive pleural parenchymal scarring as well as area of chronic consolidation within the inferior lingula likely representing scarring. Anterior left lung herniatio n across the left second intercostal space is redemonstrated. RIGHT PLEURAL SPACE: Effusion: None Calcification: None Thickening: None Pneumothorax: None LEFT PLEURAL SPACE: Effusion: None Calcification: None Thickening: Mild Pneumothorax: None HEART: Heart Size: Mildly Enlarged Coronary Calcification: Mild Pericardial Effusion: None OTHER FINDINGS: Upper abdomen: Stable thickening of the left adrenal gland measuring up to 1.8 cm. Tiny hiatal hernia . Bony thorax: Redemonstrated multiple healed segmental fracture deformities of the left-sided ribs wit h some secondary thoracic deformity. Multilevel degenerative disc disease. Supraclavicular region: None Other: Stable aneurysmal dilatation of the aortic root measuring up to 4.1 cm. Stable ectasia of the ascending thoracic aorta measuring up to 3.8 cm. Dilated main pulmonary artery measuring up to 4.6 cm consistent with pulmonary hypertension. IMPRESSION: 1. Development of medial left upper lung 2 cm spiculated nodule concerning for malignancy. Further e valuation with PET CT recommended. Additional scattered pulmonary nodules are relatively stable from prior exam. 2. Development of enlarged subcarinal lymph node. Possibly related to #1. 3. Similar area of consolidation with air bronchograms in the lingular segment of the left upper lob e is similar to prior exam and could reflect underlying atelectasis. 4. Stable ectasia of the ascending thoracic aorta and mild aneurysmal dilatation of the aortic root. CT LUNG RAD AND CT CHEST RECOMMENDATION: Lung-Rad 4B or 4X Very Suspicious: Follow-up Chest CT with o r without contrast or PET/CT and/or tissue sampling. PET/CT may be used when there is a > 8 mm solid component. S Modifier (other clinically significant findings): S [facility], , 02/05/2024 1:22 PM
== END | disposition home or self-care (01) ==
LOC: RADCTMAIN 12:40
PROVIDERS: ATTEND Internal Medicine
DX: Z12.2 Encounter for screening for malignant neoplasm of respiratory organs (principal); F17.210 Nicotine dependence, cigarettes, uncomplicated; R91.8 Other nonspecific abnormal finding of lung field
CPT/HCPCS: 71271

== ENCOUNTER → 2024-03-18 | Outpatient (CLI) | payer MEDICARE ==
--- NOTE | 2024-03-20 22:31 | PE ---
EXAMINATION TYPE: PET CT fusion skull to thigh DATE OF EXAM: 03/18/2024 COMPARISON: Low-dose CT chest 02/05/2024 Prior PET/CT: CLINICAL INDICATION: Male, 68 years old with history of R91.1 LUNG NODULE, TECHNIQUE: Following the intravenous administration of 10.21 mCi of F-18 FDG, whole body images are performed from the skull base to the midthigh. Images are reviewed on the computer in the coronal, a xial, and sagittal planes. Reconstructed rotating images are created on independent workstation and reviewed on the computer. A localization and attenuation correction CT is performed in conjunction with the PET scan. DLP: 1326.72 mGycm SCAN: Initial Blood glucose: 100 mg/dL Average Mediastinum SUV: 2.53 Average Liver SUV: 3.34 FINDINGS: NECK: No abnormal uptake THORAX: There is a punctate focus of radiotracer in the medial left apex image 94, SUV 16.89. Suprahilar adenopathy is evident image 100 measuring 11.79 in the anterior portion and 13.75 in the p osterior position and additional left hilar lymph node measuring 8.72 SUV is present image 105. ABDOMEN: No abnormal uptake PELVIS: No abnormal uptake OSSEOUS STRUCTURES: There is a focus of radiotracer within a lower thoracic vertebral body image 126, SUV 10.[address]: Prior infarct right frontal parietal region evident COMPARISON: No suspicious uptake is identified at the subcarinal region. IMPRESSION: 1. Elevated uptake within a medial left upper lobe nodule with at least 3 additional left hilar nodes with uptake findings compatible with primary and/or metastatic disease. [facility], Workstation: [facility], 03/20/2024 10:26 PM
== END | disposition home or self-care (01) ==
LOC: RADPETMAIN 10:29
PROVIDERS: ATTEND Internal Medicine
DX: R91.1 Solitary pulmonary nodule (principal)
CPT/HCPCS: 78815; A9552

== ENCOUNTER 2024-04-21 11:22 | Day surgery (SDC) | payer MEDICARE ==
[2024-04-19 13:53] VITALS: BMI 39.4
[~2024-04-21 11:22] MED LIST changes: +LIDOCAINE 1% (10MG/ML) FOR IV START INTRADERMA PRN
[2024-04-21] MEDS: IV FLUID CONTINUATION 1,000 ML IV ONE (11:54)
[2024-04-21 12:13] LABS: Glucose,Whole Blood 148 mg/dL (70-110)
[2024-04-21 12:21] VITALS: TEMP 97.3
[2024-04-21] MEDS ORDERED: NEOSTIGMINE 1 MG/ML 10 ML VIAL ONE (12:29)
[2024-04-21] MEDS ORDERED: ePHEDrine 50 MG/ML 1 ML VIAL ONE (12:29)
[2024-04-21] MEDS ORDERED: ONDANSETRON 4 MG/2 ML VIAL ONE (12:29)
[2024-04-21] MEDS ORDERED: ROCURONIUM 10 MG/ML (5 ML VIAL) IV ONE (12:29)
[2024-04-21] MEDS ORDERED: KETAMINE HCL IN 0.9 % NACL 50 MG/5 ML SYRINGE ONE (12:29)
[2024-04-21] MEDS ORDERED: DEXAMETHASONE SOD PHOSPHATE 4 MG/ML 1 ML VIAL ONE (12:29)
[2024-04-21] MEDS ORDERED: LIDOCAINE 1% INJ 10MG/ML (20 ML MDV) ONE (12:29)
[2024-04-21] MEDS ORDERED: GLYCOPYRROLATE 0.2 MG/ML 2 ML VIAL ONE (12:29)
[2024-04-21] MEDS ORDERED: SUCCINYLCHOLINE CHLORIDE 200 MG/10 ML VIAL IV ONE (12:29)
[2024-04-21] MEDS ORDERED: PROPOFOL 10 MG/ML 20 ML VIAL IV ONE (12:29)
--- NOTE | 2024-04-21 12:58 | CT ---
EXAMINATION TYPE: CT Chest wo ION protocol DATE OF EXAM: 04/21/2024 12:07 PM COMPARISON: 03/18/2024 PET/CT CLINICAL INDICATION: Male, 69 years old with history of ct for ion bronchoscopy, pre-op bronch TECHNIQUE: Axial images were obtained at 5 mm thick sections. Reconstructed images are reviewed on [employer] computer in the coronal plane. Contrast used: mL of , (none if empty) Oral contrast used: (none if empty) CT DLP: 809 mGycm, Automated exposure control for dose reduction was used. FINDINGS: Portion of the thyroid visualized is normal. Medial left upper lobe mass measures 2.6 cm. Peripheral increased lung markings on the anterior later al left lung. There is consolidation in the lingula No suspiciously enlarged mediastinal or hilar adenopathy is identified. Areas of abnormal uptake on P ET/CT in the left hilum are difficult to separate from the adjacent noncontrast vascular structures. The ascending aorta diameter at the level of the main pulmonary artery is 4.2 cm. The main pulmonar y artery diameter at the bifurcation is 4.[address] sections are obtained through the upper abdomen. There is a 4.8 cm cyst on the anterior la teral right mid kidney IMPRESSION: 1. CT for bronchoscopy guidance. [facility], , 04/21/2024 12:55 PM
--- NOTE | 2024-04-21 13:50 | P.PCN ---
Date of Procedure: 04/21/24 Operative Findings: Preoperative Diagnosis: Left upper lobe mass Postoperative Diagnosis: Left upper lobe mass Procedure(s) Performed: Flexible bronchoscopy Robotic-assisted bronchoscopy and addition to radial ultrasound evaluation of the left upper lobe mass Robotic-assisted transbronchial transbronchial needle aspirate, transbronchial biopsies transbronchial brushing and bronchoalveolar lavage of the left upper lobe mass Anesthesia: CRISTAL Surgeon: Anabel Parnell Estimated Blood Loss (ml): 0 Pathology: other Condition: stable Disposition: same day Operative Findings: A physical exam was performed. Informed consent was obtained from the patient after explaining all the risks (pneumothorax, life threatening bleeding, infection and adverse effects due to medications), benefits and alternatives to the procedure which the patient appeared to understand and so stated. The patient was connected to the monitoring devices. General anesthesia was induced and the patient was intubated by anesthesia. A final timeout was performed and the procedure confirmed by the attending staff bronchoscopist. The bronchoscope was inserted and the airway examined. Airway examination shows that the distal trachea, Right upper lobe and middle lobe and lower lobe bronchi was all within normal limits. The left mainstem bronchus is within normal limits. Examination of left upper lobe bronchus was within normal limits. The apico-posterior subsegments were extrinsically compressed and atelectatic. The lingular segment was also patent within normal limits. Left lower lobe bronchus and the various left lower segments were within normal The flexible bronchoscope was removed and the robotic bronchoscope was inserted. Registration was completed. I next guided the robotic bronchoscope using the navigation system into the left upper lobe mass, apical segment and the navigation was done through the left upper lobe. Once in proper position, the bronchoscope was frozen. The radial EBUS probe was placed through the bronchoscope and confirmed abnormal u/s images vs normal lung. A needle was placed through the working channel and another fluoroscopic guidance, we sampled the area in the left upper lobe where the mass was present. We then used a cloud biopsy pattern with ultrasound confirmation for 3 additional passes with the needle. Rapid onsite cytology evaluation was done and the samples were found to be adequate. Following that, a forceps were next introduced through working channel and extended the appropriate distance and 2 transbronchial biopsies were performed using fluoroscopic guidance. The u/s probe was then reinserted to confirm location. When confirmed this process was repeated for a total of 8-10 transbronchial biopsies. Transbronchial biopsies of the left upper lobe mass was also done. Following that, a total of 40 cc of saline was infused into the left upper lobe lobe and approximately 10 cc of saline was aspirated and the bronchioloalveolar lavage was sent for cytologic evaluation. Flex. bronchoscope was inserted and regular suctioning was done. At the completion of the procedure, no residual secretions or bloody material within the airway. The bronchoscope was removed. The patient was extubated. FINDINGS: 1. The airways appeared normal with the exception of the posterior segment of the left upper lobe that showed narrowing and endobronchial irregularities 2 Successful navigation, ultrasonographic identification, and biopsies of left upper lobe mass 3. The the radial ultrasound view was concentric
[2024-04-21] MEDS: ALBUTEROL NEBULIZED 2.5 MG/3 ML INHALATION STA (14:13)
--- NOTE | 2024-04-21 14:33 | FL ---
EXAMINATION TYPE: FL bronchoscopy DATE OF EXAM: 04/21/2024 1:47 PM COMPARISON: Pre Operative Images if available both CT/MRI or plain film CLINICAL INDICATION: Male, 69 years old with history of BRONCH WITH ION; TECHNIQUE: FL bronchoscopy, multiple fluoroscopic images provided for procedure. Total fluoroscopy time: 5.00 minutes Total submitted images to PACS: 4 DAP: 16.755 mGym2 Gycm2 uGym2 cGycm2 or equivalent. FINDINGS: ION bronchoscopy images demonstrate bronchoscope terminating in the lung. No immediate complications identified, no pneumothorax identified. IMPRESSION: 1. No evidence for intraoperative complication. 2. Please see the operative/procedural note for further details. [facility], , 04/21/2024 2:30 PM
--- NOTE | 2024-04-21 14:43 | XR ---
EXAMINATION TYPE: XR chest 1V DATE OF EXAM: 04/21/2024 2:31 PM COMPARISON: Chest radiographs from 12/19/2022. CLINICAL INDICATION: Male, 69 years old with history of post bx; PHH TECHNIQUE: XR chest 1V Frontal view of the chest. FINDINGS: Lungs/Pleura: Left lung airspace opacities increased from prior exam. There is no evidence of pleural effusion, focal consolidation, or pneumothorax. Pulmonary vascularity: Unremarkable. Heart/mediastinum: Cardiomediastinal silhouette is unremarkable. Musculoskeletal: No acute osseous pathology. IMPRESSION: Airspace opacities throughout the left lung No evidence for pneumothorax. [facility], , 04/21/2024 2:40 PM
[2024-04-21 14:54] VITALS: RESP 20
[2024-04-21 15:10] VITALS: BP 103/64; PULSE 69
== END 2024-04-21 15:31 | disposition home or self-care (01) ==
LOC: ORWHC2ENDO 11:22
PROVIDERS: ATTEND Internal Medicine Critical Care Medicine
DX: R91.8 Other nonspecific abnormal finding of lung field (principal); I10 Essential (primary) hypertension; E78.5 Hyperlipidemia, unspecified; I25.10 Atherosclerotic heart disease of native coronary artery without angina pectoris; G47.33 Obstructive sleep apnea (adult) (pediatric); J44.9 Chronic obstructive pulmonary disease, unspecified; E11.9 Type 2 diabetes mellitus without complications; F17.210 Nicotine dependence, cigarettes, uncomplicated; Z99.81 Dependence on supplemental oxygen; Z99.89 Dependence on other enabling machines and devices; Z79.84 Long term (current) use of oral hypoglycemic drugs; Z79.51 Long term (current) use of inhaled steroids; Z79.899 Other long term (current) drug therapy
CPT/HCPCS: 88108; 88305; 87070; 87205; 87116; 87102; 87077; 87186; 87206; 71045; 71250; 31628; 31629; 31623; 31624; J0330; J1100; J2710; J2405; J2003; J2704; J1596; S2900

== ENCOUNTER → 2024-09-22 | Outpatient (CLI) | payer MEDICARE ==
[2024-09-22 10:14] LABS: African American GFR (CKD) 77 (>60 ml/min/1.73 sqM); Blood Urea Nitrogen 41 mg/dL (9-20); Non-African American GFR(CKD) 66 (>60 ml/min/1.73 sqM)
--- NOTE | 2024-09-22 10:58 | CT ---
EXAMINATION TYPE: CT chest w con DATE OF EXAM: 09/22/2024 10:38 AM COMPARISON: 04/21/2024, 03/18/2024, 02/05/2024. CLINICAL INDICATION: Male, 69 years old with history of R91.8 SPN; PHH, SPN TECHNIQUE: Multiple axial images were obtained through the chest. Sagittal and coronal reformats were created for review. MIP was performed on a separate workstation. Contrast used:100 mL of Isovue 300 with IV Contrast (None if empty) Oral contrast used: (None if empty) CT DLP: 899.4 mGycm, Automated exposure control for dose reduction was used. FINDINGS: LUNGS/ PLEURA: Suspected surgical/post treatment changes the left upper lung. Increasing Size of righ t upper lobe pulmonary nodule now measuring 15 mm previously 10 mm on 04/21/2024. Left upper lobe cons olidation now present, previously pulmonary nodule seen on 04/21/2024 is no longer visualized.. Consol idation extends from the pulmonary hilum towards and along the medial left upper lungr area measures in totality 11.1 x 8.2 cm. AIRWAY: Patent and unremarkable. HEART: Size within normal limits. No significant coronary artery calcifications. MEDIASTINUM: Increasing size of right low paratracheal lymph node measuring 16 mm. Left paratracheal lymph node measuring up to 21 mm right 10 R lymph nodes measuring up to 15 mm. VASCULATURE: No aortic aneurysm. Pulmonary trunk is dilated up to 44 mm. MUSCULOSKELETAL: Multiple l eft-sided rib deformities with callus formation. No acute rib fractures definitively visualized. SOFT TISSUES/LYMPH NODES: Unremarkable. LOWER NECK: No significant findings. UPPER ABDOMEN: Simple appearing left renal corticale subcentimeter cyst off upper quadrant. Left adre nal 23 mm nodule measuring 27 Hounsfield units which has increased in size from 02/05/2024. Stephan hepa tis lungs on the upper abdomen now measuring up to 21 mm. Low-attenuation liver parenchyma. IMPRESSION: 1. Findings compatible with progression of disease with metastatic disease identified Increasing con solidation of the left upper lung medial aspect. Underlying postsurgical change is may be present. Un derlying mass not excluded. Nodule seen on 04/21/2024 not visualized. Increasing size of right upper l obe pulmonary nodule concerning for metastatic disease. Increasing size of stephan hepatis lymph node c oncerning for metastatic disease. Increasing size of left adrenal nodule measuring up to 23 mm, previ ously not definitively visualized on 02/05/2024 concerning for metastatic disease. Increasing size and mediastinal lymphadenopathy. 2. Pulmonary hypertension. 3. Hepatic steatosis. 4. Multiple rib deformities on the left likely post treatment/post rheumatic. [facility], , 09/22/2024 10:56 AM
== END | disposition home or self-care (01) ==
LOC: RADCTMAIN 09:36
PROVIDERS: ATTEND Internal Medicine
DX: R91.8 Other nonspecific abnormal finding of lung field (principal); I27.20 Pulmonary hypertension, unspecified; K76.0 Fatty (change of) liver, not elsewhere classified; M95.4 Acquired deformity of chest and rib
CPT/HCPCS: 82565; 84520; 71260; 36415; Q9967

== ENCOUNTER → 2024-10-13 | Outpatient (CLI) | payer MEDICARE ==
--- NOTE | 2024-10-14 13:26 | PE ---
EXAMINATION TYPE: PET CT fusion skull to thigh DATE OF EXAM: 10/14/2024 COMPARISON: Most recent chest CT September 22, 2024 and older studies HISTORY: Lung nodule TECHNIQUE: Following the intravenous administration of 11.42 mCi of F-18 FDG, whole body images are performed from the skull base to the midthigh. Images are reviewed on the computer in the coronal, a xial, and sagittal planes. Reconstructed rotating images are created on independent workstation and reviewed on the computer. A localization and attenuation correction CT is performed in conjunction with the PET scan. Blood glucose level was 78. SCAN: Subsequent Scan FINDINGS: SKULL BASE AND NECK: Persistent area of diminished hypermetabolic uptake corresponding to hypodense area on CT inferior right frontal lobe likely reflecting old infarct. There is new left supraclavicular subcentimeter adenopathy axial image 50, max SUV is. CHEST, MEDIASTINUM, AND HILAR REGION: Enlarging hypertrophied metabolic left suprahilar mass abutting the mediastinum is present measuring 10.3 x 4.7 cm axial Image 90 with max SUV of. There are new enlarged hypermetabolic lymph nodes in the prevascular space axial image 89, AP window, right paratracheal region, left hilar, and subcarinal regions. For reference right paratracheal 2.3 x 1.9 cm lymph node axial image 91 has max SUV of. There is new hypermetabolic 1.0 cm focus in the lower anterolateral right thoracic wall axial image 1 19, max SUV is. ABDOMEN AND PELVIS: There are 2 new hypermetabolic lesions in the liver, largest corresponds to a sub tle hypointense 3.4 cm lesion in the inferior left hepatic lobe axial image 150, max SUV is. There is hypermetabolic mass or lymph node just superior to the pancreatic head measuring 2.6 cm axia l image 152, max SUV is There is now hypermetabolic 2.9 cm medial left adrenal mass axial image 157, maximum SUV is. There is suspicion for left pelvic hypermetabolic metastatic 1.1 cm focus axial image 256, max SUV is . OSSEOUS STRUCTURES: New multifocal hypermetabolic osseous lesions are identified. Most prominent area of involvement is in the T8 vertebra with surrounding abnormal soft tissue extending anteriorly, max SUV is. Suspicious hypermetabolic lesion in the right femoral neck is noted. OTHER CT: Persistent cardiomegaly. Persistent prominent pulmonary arteries raising concern for underl davion pulmonary hypertension. Persistent moderate to severe three-vessel coronary artery calcification . Surgical changes to the anterior wall of the abdomen from prior ventral wall hernia repair surgery ar e redemonstrated. There is new [id number]-mp-[id number] diffuse subcutaneous edema. There is new small amount of free fluid in the pelvis. There is persistent spondylolisthesis and degenerative change at the sorin mbosacral junction. Old left sided rib fractures are redemonstrated. IMPRESSION: Active metastatic neoplastic progression as detailed above. [facility], , 10/14/2024 1:23 PM
== END | disposition home or self-care (01) ==
LOC: RADPETMAIN 13:15
PROVIDERS: ATTEND Internal Medicine
DX: C79.9 Secondary malignant neoplasm of unspecified site (principal); R91.8 Other nonspecific abnormal finding of lung field
CPT/HCPCS: 78815; A9552

== ENCOUNTER 2024-10-26 08:18 | Day surgery (SDC) | payer MEDICARE ==
[2024-10-26 08:35] VITALS: TEMP 98.5
[2024-10-26] MEDS: ALPRAZolam 0.25 MG TAB PO STA (08:51)
[2024-10-26 09:04] LABS: Platelet Count 204 10*3/uL (140-440)
[2024-10-26 09:14] LABS: INR 1.2 (<1.2); Prothrombin Time 12.4 sec (10.0-12.5)
[2024-10-26 09:43] VITALS: RESP 20
[2024-10-26 10:05] VITALS: BP 118/72; PULSE 64
--- NOTE | 2024-10-26 10:45 | US ---
EXAMINATION TYPE: US discontinued liver bx panel DATE OF EXAM: 10/26/2024 9:55 AM COMPARISON: PET CLINICAL INDICATION: Male, 69 years old with history of K76.89 OTHER SPECIFIED DISEASES OF LIVER; PHH , left hepatic lobe liver mass. TECHNIQUE: Attempted biopsy canceled, limited grayscale imaging that liver. FINDINGS: Ill-defined mass in the left hepatic lobe is better appreciated on PET/CT. Mass measures up to 3.4 cm deep IMPRESSION: Canceled procedure due to patient low blood pressure. [facility], , 10/26/2024 10:43 AM
== END 2024-10-26 10:15 | disposition home or self-care (01) ==
LOC: RADPROMAIN 08:18
PROVIDERS: ATTEND Internal Medicine
DX: Z53.8 Procedure and treatment not carried out for other reasons (principal); K76.89 Other specified diseases of liver
CPT/HCPCS: 36415; 76705; 82947; 85049; 85610

== ENCOUNTER 2024-11-03 07:55 | Day surgery (SDC) | payer MEDICARE ==
[2024-11-03] MEDS ORDERED: HYDROmorphone 0.5 MG/0.5 ML SYRINGE IVP PRN (09:00)
[2024-11-03 09:34] LABS: Platelet Count 205 10*3/uL (140-440)
[2024-11-03 09:49] LABS: INR 1.2 (<1.2); Prothrombin Time 12.5 sec (10.0-12.5)
[2024-11-03 09:53] VITALS: TEMP 98.4
[2024-11-03 11:51] VITALS: RESP 24
[2024-11-03 14:45] VITALS: BP 127/75; PULSE 75
--- NOTE | 2024-11-03 16:25 | US ---
EXAMINATION TYPE: US biopsy liver DATE OF EXAM: 11/03/2024 10:59 AM CLINICAL INDICATION:Male, 69 years old with history of K76.89 OTHER SPECIFIED DISEASES OF LIVER; COMPARISON: PET/CT 10/13/2024 ATTENDING: Dr. Sky TECHNIQUE: Ultrasound guided percutaneous biopsy of left liver lobe mass using coaxial method. The patient was m onitored by a qualified trained nurse independent of the Radiologist during sedation. FINDINGS: The procedure was explained to the patient. All questions were answered and informed consent was obta ined. The patient was placed supine and transverse ultrasound images of the left liver lobe were obtained. The 4.1 cm mass is identified but is located deep making visualization and biopsy technically challen ging. Of particular note, we note a hypermetabolic subcutaneous nodule along the anterolateral right thorac oabdominal junction measuring 1 cm on the patient's PET/CT. This was successfully identified by ultra sound and can be pursued if liver biopsy results are inconclusive. The overlying skin was marked and prepped using sterile method. Timeout was taken per protocol. Follo wing administration 1% local lidocaine anesthesia, a 17/18-gauge Bard biopsy system was advanced with needle tip visualized within the anterior left liver lobe parenchyma. Three 18-gauge core biopsy was obtained, placed in formalin solution, and sent to pathology. The needle was removed. Other additional ultrasound scanning shows no abnormal fluid collection or ev ident complication. Hemostasis was obtained and a dressing was placed. Patient was taken for postprocedure observation in stable condition. IMPRESSIONS: 1. Status post ultrasound guided left liver lobe mass biopsy as above. Pathology results pending. Not e that the procedure was technically challenging due to deep location and patient's labored breathing . 2. If results return inconclusive, a 1 cm hypermetabolic subcutaneous nodule along the right flank ca n alternatively be pursued for diagnosis. [facility], , 11/03/2024 4:22 PM
== END 2024-11-03 14:10 | disposition home or self-care (01) ==
LOC: RADPROMAIN 07:55
PROVIDERS: ATTEND Internal Medicine
DX: K76.89 Other specified diseases of liver (principal)
CPT/HCPCS: 36415; 47000; 76942; 82947; 85049; 85610; 88307; 88312; 88341; 88342